=== PATIENT | male | born 1995 | race Caucasian/White ===

== ENCOUNTER 2018-10-16 10:47 | Emergency (ER) | payer MEDICAID ==
--- NOTE | 2018-10-16 12:55 | Diagnostic Imaging Report ---
Head CT without intravenous contrast Indication: Trauma Comparison: Facial bone CT the same day Technique: Axial images were obtained from the vertex to the skull base without IV contrast. Coronal reconstructions were made. Total DLP: 723, CTDI35 FINDINGS: Images of the brain obtained without contrast demonstrate no acute hemorrhage. No mass lesions identified. The ventricles and basal cisterns are patent. The hernandez-white matter differentiation is preserved. There is no mass effect or midline shift. No skull fractures identified. No soft tissue swelling. The paranasal sinuses are clear. IMPRESSION: No acute intracranial abnormality.
--- NOTE | 2018-10-16 12:57 | Diagnostic Imaging Report ---
CT cervical spine without IV contrast HISTORY: Trauma COMPARISON: None Technique: Axial images were obtained from the skull base to the upper thoracic spine without IV contrast. Multiplanar reconstructions were made. Total DLP: 685, CTDI30 FINDINGS: Images of the spine cervical spine obtained without contrast demonstrate no evidence of a fracture or subluxation. The disc spaces are preserved. There may be minimal scoliosis. No prevertebral soft tissue swelling. No focal soft tissue abnormalities. The lung apices are clear. IMPRESSION: No evidence of a fracture or subluxation. Possible minimal scoliosis.
--- NOTE | 2018-10-16 12:59 | Diagnostic Imaging Report ---
CT facial bones without IV contrast HISTORY: Trauma COMPARISON: CT head the same day Technique: Axial images of the facial bones were obtained without IV contrast. Reconstructions were made. total DLP: 469, CTDI21 Findings: There appear to be nondisplaced nasal bone fractures which are age indeterminate. The bilateral orbital floors are intact. The globes and intraconal compartments are intact. The bilateral TMJ joints are intact. The bilateral zygomatic arches are intact. No significant focal soft tissue swelling. IMPRESSION: Age-indeterminate nondisplaced nasal fractures, correlate clinically.
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
== END 2018-10-16 13:45 | disposition home or self-care (01) ==
LOC: ER 10:47
DX: S02.2XXA Fracture of nasal bones, initial encounter for closed fracture (principal); S93.601A Unspecified sprain of right foot, initial encounter; S96.911A Strain of unspecified muscle and tendon at ankle and foot level, right foot, initial encounter; I10 Essential (primary) hypertension; V49.49XA Driver injured in collision with other motor vehicles in traffic accident, initial encounter; Y93.89 Activity, other specified; Y92.410 Unspecified street and highway as the place of occurrence of the external cause; Y99.8 Other external cause status
CPT/HCPCS: 70450-TC; 70486-TC; 72125-TC; 73630-TC-RT; Z7502

== ENCOUNTER 2018-10-22 10:32 | Emergency (ER) | payer MEDICAID ==
[2018-10-22 11:11] LABS: % BASOPHILS 0.5 % (0.0-2.0); % EOSINOPHILS 1.5 % (0.0-5.0); % LYMPHOCYTES 21.8 % (20.0-50.0); % NEUTROPHILS 71.2 % (40.0-80.0); EOSINOPHILE ABSOLUTE 0.1 Th/cmm (0.1-0.4); HEMATOCRIT 49.9 % (41.0-60); HEMOGLOBIN 16.7 gm/dL (12-16); LYMPHOCYTE ABSOLUTE 2.1 Th/cmm (1.5-3.0); MEAN CELL VOLUME 97.2 fl (80-99); MEAN CORPUSCULAR HEMOGLOBIN 32.6 pg (26.0-30.0); MEAN CORPUSCULAR HGB CONC 33.5 pg (28.0-36.0); MEAN PLATELET VOLUME 9.4 fl; MONOCYTE ABSOLUTE 0.5 Th/cmm (0.3-1.0); PLATELET COUNT 210 Th/cmm (150-400); RED BLOOD COUNT 5.13 Mil/cmm (4.30-5.70); RED CELL DISTRIBUTION WIDTH 12.6 % (11.5-20.0); WHITE BLOOD COUNT 9.7 Th/cmm (4.8-10.8)
[2018-10-22 11:28] LABS: ALBUMIN 4.7 gm/dL (4.2-5.5); ALKALINE PHOSPHATASE 80 U/L (34-104); ANION GAP 11.9 (7.0-16.0); BILIRUBIN,TOTAL 0.5 mg/dL (0.3-1.0); BUN - UREA NITROGEN 12 mg/dL (7-25); CALCIUM SERUM 9.4 mg/dL (8.6-10.3); CARBON DIOXIDE 27.8 mEq/L (21.0-31.0); CHLORIDE 102 mEq/L (98-107); CREATININE - SERUM 0.9 mg/dL (0.7-1.3); GFR AFRICAN-AMERICAN > 60.0 ml/min (>90); GFR NON AFRICAN-AMERICAN > 60.0 ml/min; GLUCOSE 102 mg/dL (70-105); POTASSIUM SERUM 3.7 mEq/L (3.5-5.1); SGOT 18 U/L (13-39); SGPT/ALT 26 U/L (7-52); SODIUM SERUM 138 mEq/L (136-145); TOTAL PROTEIN,SERUM 7.1 gm/dL (6.0-8.3)
[2018-10-22 11:32] LABS: URINE SOURCE CLEAN C
[2018-10-22 11:42] LABS: URINE BILIRUBIN NEGATIVE (NEGATIVE); URINE BLOOD NEGATIVE (NEGATIVE); URINE GLUCOSE (UA) NEGATIVE (NEGATIVE); URINE KETONE NEGATIVE (NEGATIVE); URINE LEUKOCYTE ESTERASE NEGATIVE (NEGATIVE); URINE NITRATE NEGATIVE (NEGATIVE); URINE PROTEIN NEGATIVE (NEGATIVE); URINE UROBILINOGEN 0.2 E.U./dL (0.2 - 1.0)
--- NOTE | 2018-10-22 11:45 | Diagnostic Imaging Report ---
CT scan abdomen and pelvis without intravenous contrast HISTORY: Pain, trauma Total DLP equals 372 CTDI equals 8.5 Axial sections were obtained from the xiphoid process down to the pubic symphysis. The liver exhibits a normal size and contour. No focal lesions. A 1.0 x 0.5 cm radiodensity appears to be situated the gallbladder consistent with a calculus. No biliary dilatation. The spleen appears normal. No focal amenities seen within the pancreas. No focal renal lesions. No hydronephrosis. The exam of the pelvis demonstrates preservation of normal fat planes. No abnormal soft tissue masses or abnormal fluid collections. No definite abnormalities seen in the region of the appendix. IMPRESSION: 1. 1.0 x 0.5 cm radiodensity that appears related the gallbladder consistent with cholelithiasis. 2. No other acute abnormalities
[2018-10-22 12:12] LABS: URINE CLARITY CLEAR (CLEAR); URINE COLOR YELLOW; URINE MICROSCOPIC INDICATED? NO
[2018-10-22 12:13] LABS: AMPHETAMINE URINE NEGATIVE (NEGATIVE); BARBITURATES URINE NEGATIVE (NEGATIVE); METHAMPHETAMINES QUAL URINE NEGATIVE (NEGATIVE); PHENCYCLIDINE (PCP) URINE NEGATIVE (NEGATIVE)
[2018-10-22 12:14] LABS: COCAINE METABOLITE QUAL URINE POSITIVE (NEGATIVE); METHADONE URINE NEGATIVE (NEGATIVE); OPIATES (MORPHINE) QUAL. URINE NEGATIVE (NEGATIVE); TRICYCLICS (TCA) QUAL. URINE NEGATIVE (NEGATIVE)
[2018-10-22 12:25] LABS: BENZODIAZEPINES QUAL URINE NEGATIVE (NEGATIVE); CANNABINOID THC POSITIVE (NEGATIVE)
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
== END 2018-10-22 12:28 | disposition home or self-care (01) ==
LOC: ER 10:32
DX: R10.9 Unspecified abdominal pain (principal); F17.200 Nicotine dependence, unspecified, uncomplicated
CPT/HCPCS: 36415-UA; 80053-TC; 80307; 81003-TC; 85025-TC; Z7502